=== PATIENT | female | born 1985 | race Caucasian/White ===

== ENCOUNTER → 2023-01-27 09:58 | Outpatient (BNVA) | payer OTHER, SELFPAY | PROVIDERS: PCP Nurse Practitioner Family; Referring Provider Nurse Practitioner Family; Visit Provider Psychiatry & Neurology Neurology | DX: G40.219 Localization-related (focal) (partial) symptomatic epilepsy and epileptic syndromes with complex partial seizures, intractable, without status epilepticus | CPT/HCPCS: 99203 ==

== ENCOUNTER 2023-02-20 09:01 | Outpatient (CLI) | payer OTHER, SELFPAY ==
--- NOTE | 2023-02-20 09:30 | MR_ITS ---
WS: [id number] MRI HEAD WITH CONTRAST TECHNIQUE: Sagittal T1, T2 axial, T2 axial FLAIR, axial susceptibility weighted imaging, axial diffus ion weighted images, and coronal T2 images were obtained. Pre and post-T1 axial and post T1 coronal i mages. ADC and FSPGR images. CLINICAL INFORMATION: R56.9 - Unspecified convulsions COMPARISON: None. FINDINGS: No evidence of restricted diffusion to suggest acute ischemia. Ventricular system and basilar cistern s are patent. No suspicious intracranial signal normalities. Normal reed-white differentiation. Tiffanie l posterior fossa. Normal vascular flow voids at the skull base. No extra-axial fluid collections. No evidence of mass or mass effect. Fluid with mucosal thickening in the paranasal sinuses. Opacification RIGHT maxillary sinus with flui d and mucosal thickening. Inspissated secretions RIGHT maxillary sinus. Normal parapharyngeal fat. Normal optic chiasm and pituitary infundibulum. Temporal lobes and hippocampal formations are normal in appearance. No abnormal gadolinium enhancement. Normal dural venous sinuses. IMPRESSION: 1. No evidence of restricted diffusion to suggest acute ischemia. 2. No suspicious intracranial signal abnormalities. 3. Temporal lobe and hippocampal formations are normal in appearance. 4. Fluid and mucosal thickening in the paranasal sinuses. Inspissated secretions in the RIGHT maxill bayron sinus compatible with sinusitis. 5. Normal optic chiasm and pituitary infundibulum. 6. Temporal lobes and hippocampal formations are normal in appearance.
[2023-02-20] MEDS: gadobenate dimeglumine 20 mL vial IV (09:51)
== END 2023-02-20 09:02 | disposition home or self-care (01) ==
PROVIDERS: PCP Nurse Practitioner Family; Visit Provider Psychiatry & Neurology Neurology
DX: R56.9 Unspecified convulsions (principal)
CPT/HCPCS: 70553; 95813; A9577